=== PATIENT | male | born 1985 | race Caucasian/White ===

== ENCOUNTER 2024-08-17 09:26 | Emergency (ER) | payer MEDICAID, OTHER ==
[~2024-08-17] VITALS: Ht 190.5 cm; Wt 115.0 kg
[2024-08-17 09:29] VITALS: TEMP 37; O2SAT 100
[2024-08-17 10:43] LABS: BASOPHILS % 0.4 % (0.0-2.0); EOSINOPHILS % 1.1 % (0.0-5.0); HEMOGLOBIN. 11.6 g/dL (14.0-18.0); LYMPHOCYTES % 10.2 % (20.0-50.0); MEAN CORPUSCULAR HEMOGLOBIN 29.1 pg (28.0-32.0); MEAN CORPUSCULAR HGB CONC 33.1 g/dL (31.0-37.0); MEAN CORPUSCULAR VOLUME 87.8 fL (80.0-94.0); MEAN PLATELET VOLUME 7.5 fl (7.4-10.4); MONOCYTES % 7.3 % (2.0-8.0); PLATELET 296 x1000/uL (130-400); RED BLOOD CELL COUNT 3.99 mill/uL (4.7-6.1); RED CELL DISTRIBUTION WIDTH 14.4 % (11.6-14.6); WHITE BLOOD COUNT 15.5 x1000/uL (4.5-11.0)
[2024-08-17 10:56] LABS: CARBON DIOXIDE 28 mEq/L (21-32); CHLORIDE 105 mEq/L (98-107); POTASSIUM 4.6 mEq/L (3.5-5.1); SODIUM 139 mEq/L (136-145)
[2024-08-17 10:57] LABS: CALCIUM 8.7 mg/dL (8.7-10.4)
[2024-08-17 11:01] LABS: CREATININE 0.9 mg/dL (0.6-1.3)
[2024-08-17 11:02] LABS: GLUCOSE 209 mg/dL (70-105); UREA NITROGEN BLOOD 14 mg/dL (9-23)
[2024-08-17 11:03] LABS: ALANINE AMINOTRANSFERASE 14 IU/L (10-49); ASPARTATE AMINOTRANSFERASE 11 IU/L (<34)
[2024-08-17 11:04] LABS: ALBUMIN 3.6 g/dL (3.2-4.8); BILIRUBIN DIRECT 0.1 mg/dL (<=3.0); BILIRUBIN TOTAL 0.3 mg/dL (0.1-1.0); PROTEIN TOTAL 7.6 g/dL (6.0-8.3)
[2024-08-17 11:22] VITALS: BP 172/92; PULSE 88; RESP 18
[2024-08-17] MEDS: KETOROLAC 30MG/ML VIAL IM ONE (11:22)
[2024-08-17] MEDS ORDERED: AMOX1TAB16 MT (14:06)
== END 2024-08-17 14:33 | disposition home or self-care (01) ==
LOC: ER 09:26
DX: I88.9 Nonspecific lymphadenitis, unspecified (principal); E11.9 Type 2 diabetes mellitus without complications; I10 Essential (primary) hypertension; Z59.02 Unsheltered homelessness; Z79.899 Other long term (current) drug therapy
CPT/HCPCS: 99285; 70491; 80076; 80048; 85025; 36415; 96372; J1885; Q9967